=== PATIENT | male | born 2000 | race Caucasian/White ===

== ENCOUNTER 2024-09-29 21:02 | Emergency (ER) | payer OTHER ==
[~2024-09-29] VITALS: Ht 180.3 cm; Wt 65.8 kg
[2024-09-29 21:40] VITALS: BP 117/74; TEMP 98.3; O2SAT 98
[2024-09-30] MEDS ORDERED: DIAZ2TAB PO (06:39)
== END 2024-09-29 23:04 | disposition left against medical advice (07) ==
LOC: ER 21:07
DX: M54.2 Cervicalgia (principal); M25.519 Pain in unspecified shoulder; Z53.21 Procedure and treatment not carried out due to patient leaving prior to being seen by health care provider

== ENCOUNTER 2024-09-30 06:19 | Emergency (ER) | payer OTHER ==
[~2024-09-30] VITALS: Ht 180.3 cm; Wt 68.0 kg
[2024-09-30 06:26] VITALS: BP 160/76; TEMP 98.1; O2SAT 98
[2024-09-30] MEDS ORDERED: DIAZ2TAB PO (06:39)
== END 2024-09-30 06:51 | disposition home or self-care (01) ==
LOC: ER 06:19
DX: S16.1XXA Strain of muscle, fascia and tendon at neck level, initial encounter (principal); M25.512 Pain in left shoulder; X58.XXXA Exposure to other specified factors, initial encounter; Y93.89 Activity, other specified; Y92.89 Other specified places as the place of occurrence of the external cause; Y99.8 Other external cause status; Z88.6 Allergy status to analgesic agent